=== PATIENT | female | born 1990 | race Two or more races ===

== ENCOUNTER 2021-08-26 07:27 | Day surgery (SDC) | payer OTHER | END 2021-08-26 20:00 | disposition home or self-care (01) | LOC: CIR.AMB 07:27 | PROVIDERS: ATTEND Obstetrics & Gynecology | DX: O02.1 Missed abortion (principal) ==

== ENCOUNTER 2022-12-07 16:11 | Inpatient (IN) | payer OTHER ==
[~2022-12-07] VITALS: Ht 157.5 cm; Wt 72.6 kg
[2022-12-07] MEDS ORDERED: IRON325 MG PO (19:33)
[2022-12-07] MEDS ORDERED: PRENATAL TABLE1 EAC1 PO (19:33)
== END 2022-12-10 13:50 | disposition home or self-care (01) | DRG 807 ==
LOC: LDR 16:11 → OB/GYN 16:11 → LDR 12-20 12:12
PROVIDERS: ADMIT Obstetrics & Gynecology; ATTEND Obstetrics & Gynecology
PROC: 4A1HXCZ Monitoring of Products of Conception, Cardiac Rate, External Approach (ICD-10-PCS; 2022-12-07)
PROC: 10E0XZZ Delivery of Products of Conception, External Approach (ICD-10-PCS; principal; 2022-12-08)
PROC: 0KQM0ZZ Repair Perineum Muscle, Open Approach (ICD-10-PCS; 2022-12-08)
DX: O70.1 Second degree perineal laceration during delivery (principal); Z37.0 Single live birth; Z3A.38 38 weeks gestation of pregnancy; Z20.822 Contact with and (suspected) exposure to COVID-19

== ENCOUNTER 2024-08-04 13:57 | Emergency (ER) | payer OTHER ==
[~2024-08-04] VITALS: Ht 157.5 cm; Wt 57.2 kg
[~2024-08-04 13:57] MED LIST: IRON325 MG PO; PRENATAL TABLE1 EAC1 PO
[2024-08-04 16:02] LABS: HEMATOCRIT 37.1 % (36.0-45.00); MEAN CELL VOLUME 88.9 fL (80.00-100.00); MEAN CORPUSCULAR HEMOGLOBIN 31.1 pg (27.00-32.0); PLATELET COUNT 336 K/uL (150-450); RED BLOOD COUNT 4.18 M/uL (4.00-6.00); RED CELL DISTRIBUTION WIDTH 13.2 % (11.5-14.5)
[2024-08-04 16:03] LABS: PH,URINE 5.5 (5.0-8.0); URINE APPEARANCE Clear; URINE BILIRRUBIN Negative (NEGATIVE); URINE BLOOD NHT; URINE COLOR Yellow; URINE GLUCOSE Negative (NEGATIVE); URINE KETONE Negative (NEGATIVE); URINE LEUKOCYTE Negative; URINE NITRATE Negative; URINE PROTEIN Negative (NEGATIVE); URINE UROBILINOGEN 0.2 E.U./dl
[2024-08-04 16:07] LABS: URINE BACTERIA 212.8 uL (0.0-1933); URINE EPITHELIAL CELLS 5.3 uL (0.0-38.8); URINE WBC 7.9 uL (0.0-23.2)
[2024-08-04 16:30] LABS: URINE RBC 1.3 uL (0.0-20.8)
== END 2024-08-04 17:54 | disposition home or self-care (01) ==
LOC: ER 13:59
PROVIDERS: General Practice
DX: O20.8 Other hemorrhage in early pregnancy (principal); Z3A.15 15 weeks gestation of pregnancy; N93.9 Abnormal uterine and vaginal bleeding, unspecified; R10.2 Pelvic and perineal pain

== ENCOUNTER 2024-11-20 15:27 | Outpatient (CLI) | payer OTHER | END 2024-11-20 16:36 | disposition home or self-care (01) | LOC: NST 15:27 | PROVIDERS: ATTEND Obstetrics & Gynecology | DX: Z34.83 Encounter for supervision of other normal pregnancy, third trimester (principal) ==

== ENCOUNTER 2025-01-01 15:05 | Inpatient (IN) | payer OTHER ==
[~2025-01-01] VITALS: Ht 157.5 cm; Wt 73.5 kg
[2025-01-16] VITALS (10 sets, daily range): BP systolic 109–129; BP diastolic 58–94
[2025-01-16] MEDS ORDERED: OXYTOCIN 20 UNITS/500ML RL PIGGYBAG IV ONE (08:31)
[2025-01-16] MEDS ORDERED: OXYTOCIN 500 ML IV ONE (08:45)
[2025-01-16] MEDS ORDERED: RINGERS SOLUTION,LACTATED 1,000 ML IV SCH (08:45)
[2025-01-16] MEDS ORDERED: DIALYVITE 800-1 EACH PO (09:02)
[2025-01-16 09:08] LABS: HEMATOCRIT 33.8 % (36.0-45.00); HEMOGLOBIN 11.4 g/dL (12.0-15.00); MEAN CELL VOLUME 89.8 fL (80.00-100.00); MEAN CORPUSCULAR HEMOGLOBIN 30.3 pg (27.00-32.0); MEAN CORPUSCULAR HGB CONC 33.7 g/dl (32.0-36.0); PLATELET COUNT 226 K/uL (150-450); RED BLOOD COUNT 3.76 M/uL (4.00-6.00)
[2025-01-16 09:20] LABS: RED CELL DISTRIBUTION WIDTH 16.4 % (11.5-14.5)
[2025-01-16 09:40] LABS: INR < 0.93; PARTIAL THROMBOPLASTIN TIME 25.9 SECONDS (22.0-34.0); PROTHROMBIN TIME 10.2 SECONDS (9.0-11.5)
[2025-01-16 10:02] LABS: ALBUMIN 2.8 gm/dL (3.4-5.0); BILIRUBIN TOTAL 0.18 mg/dL (0.3-1.2); CREATININE SERUM 0.43 mg/dL (0.55-1.02); GFR 167.1; GLOBULINA 3.7 G/DL (2.4-3.5); POTASSIUM 4.06 mEq/L (3.5-5.1); TOTAL PROTEIN 6.5 gm/dL (6.4-8.2)
[2025-01-16] MEDS ORDERED: CHLORHEXIDINE GLUCONATE 120 ML BOTTLE TOP ONE ×3 (10:56→14:15)
[2025-01-16] MEDS ORDERED: OXYTOCIN 20 UNITS/1000ML RL PIGGYBAG IV ONE (10:56)
[2025-01-16] MEDS ORDERED: ERYTHROMYCIN BASE OPHT 1GM EACH TUBE OP ONE ×2 (10:56→14:00)
[2025-01-16] MEDS ORDERED: LIDOCAINE HCL 1% 10ML VIAL ONE (10:57)
[2025-01-16] MEDS ORDERED: MORPHINE SULFATE 4 MG/ML CARTRIDGE IV ONE (11:30)
[2025-01-16] MEDS ORDERED: METHYLERGONOVINE MALEATE 0.2 MG/ML AMPUL ONE (12:46)
[2025-01-16] MEDS ORDERED: OXYTOCIN 1,000 ML IV SCH ×2 (14:00→14:15)
[2025-01-16] MEDS ORDERED: LIDOCAINE HCL 1% 10ML VIAL IJ ONE (14:00)
[2025-01-16] MEDS ORDERED: METHYLERGONOVINE MALEATE 0.2 MG/ML AMPUL IM ONE (14:00)
[2025-01-16] MEDS ORDERED: KETOROLAC TROMETHAMINE 10 MG TABLET PO PRN (16:00)
[2025-01-17 00:18] VITALS: BP 112/75
[2025-01-17 06:46] LABS: HEMATOCRIT 25.4 % (36.0-45.00); MEAN CELL VOLUME 89.5 fL (80.00-100.00); MEAN CORPUSCULAR HGB CONC 33.5 g/dl (32.0-36.0); PLATELET COUNT 202 K/uL (150-450); RED BLOOD COUNT 2.84 M/uL (4.00-6.00); RED CELL DISTRIBUTION WIDTH 15.9 % (11.5-14.5)
[2025-01-17 06:54] LABS: HEMOGLOBIN 8.5 g/dL (12.0-15.00); MEAN CORPUSCULAR HEMOGLOBIN 29.9 pg (27.00-32.0)
[2025-01-17 08:16] VITALS: BP 103/70
[2025-01-17] MEDS ORDERED: PNV,CALCIUM 72/IRON/FOLIC ACID 1 TAB TABLET PO SCH (09:00)
[2025-01-17] MEDS ORDERED: FERROUS SULFATE 325 MG TABLET.EC PO SCH (09:00)
[2025-01-17 16:51] VITALS: BP 106/70
[2025-01-18] VITALS: BP 102/69
[2025-01-18] MEDS ORDERED: INTEGRA PLUS C1 EACH PO (07:35)
[2025-01-18 08:53] VITALS: BP 117/61; BP 135/88
== END 2025-01-18 13:14 | disposition home or self-care (01) | DRG 807 ==
LOC: LDR 01-16 08:32 → OB/GYN 01-16 16:56 → LDR 02-04 06:57
PROVIDERS: Obstetrics & Gynecology; ADMIT Obstetrics & Gynecology; ATTEND Obstetrics & Gynecology
PROC: 10E0XZZ Delivery of Products of Conception, External Approach (ICD-10-PCS; principal; 2025-01-16)
PROC: 0KQM0ZZ Repair Perineum Muscle, Open Approach (ICD-10-PCS; 2025-01-16)
PROC: 3E033VJ Introduction of Other Hormone into Peripheral Vein, Percutaneous Approach (ICD-10-PCS; 2025-01-16)
PROC: 4A1HXCZ Monitoring of Products of Conception, Cardiac Rate, External Approach (ICD-10-PCS; 2025-01-16)
DX: O70.1 Second degree perineal laceration during delivery (principal); Z37.0 Single live birth; Z3A.38 38 weeks gestation of pregnancy